=== PATIENT | male | born 1985 | race Native Hawaiian/Other Pacific Islander ===

== ENCOUNTER 2017-08-12 11:17 | Emergency (ER) | payer SELFPAY ==
[2017-08-12 11:24] VITALS: BP 160/91
[2017-08-12] MEDS ORDERED: MOTRIN PO ONE (11:52)
[2017-08-12] MEDS ORDERED: XYLOCAINE 1% 20 mL INFILTRATI ONE (11:52)
--- NOTE | 2017-08-12 11:54 | Emergency Department Report ---
Blank Doc - Documentation Documentation: Patient is a 32-year-old male who is presented with right lateral thigh abscess has been growing steadily for approximately 2 weeks. Patient denies any nausea vomiting. Patient states the pain is a 7 out of 10 in severity. Patient also has has no current fever. Patiently moved to fast track area for incision and drainage.
--- NOTE | 2017-08-12 13:12 | Emergency Department Report ---
Abscess Boil HPI - HPI Chief Complaint: Skin/Abscess/Foreign Body Stated Complaint: BOIL RIGHT LEG Time Seen by Provider: 08/12/17 11:52 History: Yes Pain, Yes Purulent Drainage, No Fever, No Numbness, No Foreign Body , No Previous History, No Insect Bite HPI: Patient is a 32-year-old male who is presented with right lateral thigh abscess has been growing steadily for approximately 2 weeks. Patient denies any nausea vomiting. Patient states the pain is a 7 out of 10 in severity. Patient also has has no current fever. Patiently moved to fast [facility] area for incision and drainage. Home Medications: Previous Rx's Medication Instructions Recorded Last Taken Type Cephalexin [Keflex] 500 mg PO Q8HR #30 cap 08/12/17 Unknown Rx traMADol [Ultram] 50 mg PO Q8HR PRN #15 tablet 08/12/17 Unknown Rx Allergies/Adverse Reactions: Allergies Allergy/AdvReac Type Severity Reaction Status Date / Time No Known Allergies Allergy Unverified 08/12/17 11:23 ED Review of Systems ROS: Stated complaint: BOIL RIGHT LEG Other details as noted in HPI Constitutional: denies: chills, fever Eyes: denies: eye pain, eye discharge, vision change ENT: denies: ear pain, throat pain Respiratory: denies: cough, shortness of breath, wheezing Cardiovascular: denies: chest pain, palpitations Endocrine: no symptoms reported Gastrointestinal: denies: abdominal pain, nausea, diarrhea Genitourinary: denies: urgency, dysuria Musculoskeletal: denies: back pain, joint swelling, arthralgia Skin: lesions (abscess ) Neurological: denies: headache, weakness, paresthesias Psychiatric: denies: anxiety, depression Hematological/Lymphatic: denies: easy bleeding, easy bruising ED Past Medical Hx - Past Medical History Previous Medical History?: No - Surgical History Past Surgical History?: No - Social History Smoking Status: Current Every Day Smoker Substance Use Type: None - Medications Home Medications: Home Medications Medication Instructions Recorded Confirmed Last Taken Type Cephalexin [Keflex] 500 mg PO Q8HR #30 cap 08/12/17 Unknown Rx traMADol [Ultram] 50 mg PO Q8HR PRN #15 tablet 08/12/17 Unknown Rx ED Abscess Boil Physical Exam - Exam General: Vital signs noted. No distress. Alert and acting appropriately. Size: 2 cm Exam: Yes Tenderness, Yes Fluctuance, Yes Surrounding Cellulites/Erythema, Yes Normal Neurologic Exam, Yes Normal Circulation, No Lymphangitis, No Crepitation , No Heart Murmur I & D Note - I & D Note I & D Note: right lateral thigh abscess 1x2 cm erythema fluctuance pain moderate cellulitis purulent drainage. wound cleaned with betadine solution anesthesia with 1% lidocaine plain , incision with 11 blad scapel, moderate purulent out put , blunt probed with forcepts , irrigated with sterile saline 60 cc steril dressing appled all bleeding controlled pt tolerated with minimal distress. ED Course Vital Signs 08/12/17 11:19 Temperature 97.6 F Pulse Rate 111 H Respiratory 18 Rate Blood Pressure 160/91 O2 Sat by Pulse 100 Oximetry Critical care attestation.: If time is entered above; I have spent that time in minutes in the direct care of this critically ill patient, excluding procedure time. ED Medical Decision Making - Medical Decision Making Patient 32-year-old male presents for abscess right lateral thigh 2 weeks complaining of pain drainage is no fever no chills no numbness no shortness of breath no dizziness incision and drainage of same see procedure note patient tolerated with minimal distress all bleeding controlled we'll follow with PCP in 2-3 days for wound check. ED Disposition Clinical Impression: Abscess Disposition: DC- TO HOME OR SELFCARE Is pt being admited?: No Does the pt Need Aspirin: No Condition: Good Instructions: Abscess (ED), Abscess Incision and Drainage (ED) Prescriptions: Cephalexin [Keflex] 500 mg PO Q8HR #30 cap traMADol [Ultram] 50 mg PO Q8HR PRN #15 tablet PRN Reason: Pain Referrals: PRIMARY CARE,MD [Primary Care Provider] - 3-5 Days Forms: Work/School Release Form(ED) Time of Disposition: 13:18
== END 2017-08-12 13:28 | disposition home or self-care (01) ==
LOC: ED 11:17
DX: L02.416 Cutaneous abscess of left lower limb (principal); F17.200 Nicotine dependence, unspecified, uncomplicated